=== PATIENT | male | born 1940 | race Caucasian/White ===

== ENCOUNTER 2020-08-12 11:29 | Emergency (ER) | payer MEDICARE ==
[~2020-08-12] VITALS: Ht 172.7 cm; Wt 60.0 kg
[2020-08-12] MEDS ORDERED: TRES1INJ2 SC (13:31)
[2020-08-12] MEDS ORDERED: LEVO75TA4 PO (13:31)
[2020-08-12] MEDS ORDERED: ASPI81TA86 PO (13:31)
[2020-08-12] MEDS ORDERED: CARV6.25 PO (13:31)
[2020-08-12] MEDS ORDERED: METF10004 PO (13:31)
[2020-08-12] MEDS ORDERED: SIMV20TA22 PO (13:31)
[2020-08-12] MEDS ORDERED: FURO40TA2 PO (13:31)
[2020-08-12] MEDS ORDERED: COMBAER6 INH (13:31)
[2020-08-12] MEDS ORDERED: MIRT1TAB16 PO (13:31)
[2020-08-12] MEDS ORDERED: HUMA100I3 SC (13:31)
[2020-08-12] MEDS ORDERED: PANT40TA29 PO (13:31)
[2020-08-12] MEDS ORDERED: IPRATROPIUM 0.5MG/ALBUTEROL 2.5MG INH SOL UD 3ML (DUONEB) NEB ONE (14:30)
--- NOTE | 2020-08-12 16:06 | REPVR ---
PROCEDURE INFORMATION: Exam: XR Chest, 2 Views Exam date and time: 08/12/2020 3:12 PM Age: 79 years old Clinical indication: Shortness of breath; Additional info: SOB TECHNIQUE: Imaging protocol: XR of the chest Views: 2 views. COMPARISON: No relevant prior studies available. FINDINGS: Tubes, catheters and devices: External monitoring devices are present. Lungs: There is attenuation of normal lung markings in the upper lung lovelaec bilaterally, right greater than left. Interstitial prominence noted in the lower lung lovelace, left greater than right. Coarse linear opacities at both lung bases. Pleural space: Minimal blunting left lateral costophrenic angle. Heart/Mediastinum: Unremarkable. No cardiomegaly. Bones/joints: Generalized decrease in bone density. IMPRESSION: 1. Emphysema with interstitial lung disease suggested at the lung bases. 2. Small left pleural effusion /pleural thickening Electronically signed by: Danni Davis On 08/12/2020 16:05:49 PM
--- NOTE | 2020-08-12 16:33 | ECGEPIP ---
[facility] - ED Test Date: 2020-08-12 Pat Name: NIHARIKA PORTILLO Department: Room: - Gender: Male Senior Quality Assurance Specialist: NR : [id number] Requested By: Zulema Tello Order Number: [id number] Reading MD: Zulema Tello Measurements Intervals [place] Rate: 68 P: 45 VT: 146 QRS: 14 QRSD: 90 T: 4 QT: 404 QTc: 432 Interpretive Statements SINUS RHYTHM NO PRIOR Electronically Signed on 08-12-2020 16:33:16 EDT by Zulema Tello
[2020-08-12 16:58] VITALS: BP 131/64
== END 2020-08-12 17:14 | disposition home or self-care (01) ==
LOC: M ED 11:29 → EDBD 11:29 → M ED 17:14
DX: E16.2 Hypoglycemia, unspecified (principal); J44.9 Chronic obstructive pulmonary disease, unspecified; J91.8 Pleural effusion in other conditions classified elsewhere; I10 Essential (primary) hypertension; Z79.4 Long term (current) use of insulin; Z79.51 Long term (current) use of inhaled steroids; Z79.82 Long term (current) use of aspirin; Z79.899 Other long term (current) drug therapy; Z99.81 Dependence on supplemental oxygen

== ENCOUNTER 2020-12-27 19:50 | Emergency (ER) | payer MEDICARE ==
[~2020-12-27 19:50] MED LIST: ASPI81TA86 PO; CARV6.25 PO; COMBAER6 INH; FURO40TA2 PO; HUMA100I3 SC; LEVO75TA4 PO; METF10004 PO; MIRT1TAB16 PO; PANT40TA29 PO; SIMV20TA22 PO; TRES1INJ2 SC
[2020-12-27 20:48] LABS: RSV AMPLIFICATION NEGATIVE (NEGATIVE)
== END 2020-12-27 21:37 | disposition expired ==
LOC: M ED 19:50
DX: I46.9 Cardiac arrest, cause unspecified (principal); E11.9 Type 2 diabetes mellitus without complications; I11.0 Hypertensive heart disease with heart failure; I50.9 Heart failure, unspecified; J44.9 Chronic obstructive pulmonary disease, unspecified; Z99.81 Dependence on supplemental oxygen